=== PATIENT | female | born 1990 ===

== ENCOUNTER 2018-06-13 19:28 | Emergency (ER) | payer SELFPAY ==
[2018-06-13 19:40] VITALS: BMI 26.1
[2018-06-13 20:30] LABS: BASO % 0.4 % (0.0-2.0); EOS # 0.1 K/uL (0.0-0.7); HEMOGLOBIN 12.4 g/dL (12.0-16.0); LYMPH % 24.6 % (20.0-40.0); MEAN CELL VOLUME 88.8 fl (81.0-99.0); MEAN CORPUSCULAR HEMOGLOBIN 29.3 pg (27.0-31.0); MONO # 0.5 K/uL (0.0-0.8); MONO % 6.1 % (0.0-10.0); NEUT # 5.6 K/uL (1.8-7.0); NEUT % 67.9 % (50.0-75.0); NRBC % 0.1 % (0.0-0.0); RBC 4.23 Mil/uL (3.80-5.20); RED CELL DISTRIBUTION WIDTH 13.7 % (11.5-14.5); WHITE BLOOD COUNT 8.2 K/uL (4.8-10.8)
[2018-06-13 20:44] LABS: ALB/GLOB RATIO 1.1 (1.0-2.1); ALBUMIN 3.8 g/dL (3.5-5.0); ALT/SGPT 25 U/L (9-52); AST/SGOT 21 U/L (14-36); BLOOD UREA NITROGEN 2 mg/dl (7-17); CALCIUM 9.3 mg/dL (8.4-10.2); GFR NON-AFRICAN AMERICAN > 60
--- NOTE | 2018-06-13 21:30 | ED PDOC ---
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 States she has been having lower abdominal pain for 2 weeks and has had a rust colored discharge. No fevers, nausea, vomiting. No urinary symptoms. 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 Past Medical History Reviewed: Historical Data, Nursing Documentation, Vital Signs Vital Signs: Last Vital Signs Temp 98.1 F 06/13/18 19:40 Pulse 89 06/13/18 19:40 Resp 18 06/13/18 19:40 BP 113/69 06/13/18 19:40 Pulse Ox 97 06/13/18 19:40 - Medical History PMH: No Chronic Diseases - Family History Family History: States: Unknown Family Hx - Allergies Allergies/Adverse Reactions: Allergies Allergy/AdvReac Type Severity Reaction Status Date / Time Penicillins Allergy RASH Verified 06/13/18 19:40 Review of Systems ROS Statement: Except As Marked, All Systems Reviewed And Found Negative Gastrointestinal: Positive for: Abdominal Pain Genitourinary Female: Positive for: Vaginal Discharge Physical Exam - Reviewed Nursing Documentation Reviewed: Yes Vital Signs Reviewed: Yes - Physical Exam Appears: Positive for: Well, Non-toxic, No Acute Distress Head Exam: Positive for: ATRAUMATIC, NORMAL INSPECTION, NORMOCEPHALIC Skin: Positive for: Normal Color, Warm, DRY Eye Exam: Positive for: EOMI, Normal appearance, PERRL ENT: Positive for: Normal ENT Inspection Neck: Positive for: Normal, Painless ROM Cardiovascular/Chest: Positive for: Regular Rate, Rhythm Respiratory: Positive for: CNT, Normal Breath Sounds Gastrointestinal/Abdominal: Positive for: Normal Exam, Soft Pelvic Exam: Positive for: External Exam Normal, Discharge, Other (Blueprint Cutter: Breanne Kinney RN). Negative for: Tender W/Cervical Motion, Tender Adnexa, Tender Uterus Back: Positive for: Normal Inspection Extremity: Positive for: Normal ROM Neurologic/Psych: Positive for: Alert, Oriented - Laboratory Results Result Diagrams: 06/13/18 20:20 06/13/18 20:20 Lab Results: Total Bilirubin < 0.1 mg/dl (0.2-1.3) L 06/13/18 20:20 AST 21 U/L (14-36) 06/13/18 20:20 ALT 25 U/L (9-52) 06/13/18 20:20 Alkaline Phosphatase 101 U/L (38-126) 06/13/18 20:20 Total Protein 7.3 G/DL (6.3-8.2) 06/13/18 20:20 Albumin 3.8 g/dL (3.5-5.0) 06/13/18 20:20 Globulin 3.4 gm/dL (2.2-3.9) 06/13/18 20:20 Albumin/Globulin Ratio 1.1 (1.0-2.1) 06/13/18 20:20 Beta HCG, Quant 74618.00 mIU/mL 06/13/18 20:20 - ECG O2 Sat by Pulse Oximetry: 97 Pulse Ox Interpretation: Normal Medical Decision Making Medical Decision MakinPM @ 15 weeks presenting with pelvic pain and discharge --Well appearing, all vitals normal, exam shows some discharge, no tenderness, os closed --Will check U/S for apparent abnormality Time: 2308 US RESULTS Findings Uterus: Single Live intrauterine gestation. Presentation- Cephalic. Placenta- Left. Clear from os (> 2 cm from cervix). motion- Seen. Heart Rate- 139 beats per minute Amniotic fluid- Very little amniotic fluid visualized, 1.76 cm. The following measurements were obtained: BPD 3.35 cm- 16 weeks 3 days. HC 12.79 cm 16 weeks 3 days. AC 9.12 cm 15 weeks 2 days. FL 2.02 cm 16 weeks 0 days. Estimated ultrasound gestational age- 16 weeks, 0 days. Uterus- multiple pedunculated fibroids, largest measures 7.5 x 7.4 x 5.2 cm. Cervix 4.2 cm. Closed. No cervical abnormality seen. Right Ovary Not seen. Left Ovary Not seen. Free Fluid None. Other Findings None. Impression Single live intrauterine gestation - 16 weeks, 0 days. Heart Rate is 139 beats per minute. Very little amniotic fluid of 1.76 cm. Multiple pedunculated uterine fibroids, Electronically signed on Jun 13, 2018 11:08:08 PM EST by: Haja Swift M.D., MBA Certified By [facility] & [facility] Fellowship Trained MRI and CT Specialist Gave results to patient using certified wire lather EDT Omar Fatima Spoke with Dr. Wang who recommended no acute intervention Followup given for [facility] Well appearing upon discharge Disposition - Clinical Impression Clinical Impression: Abdominal pain during - Disposition [facility] Disposition: Routine/Home Disposition Time: 00:00 Condition: GOOD Instructions: Stomach Pain in Early Forms: [facility] (Portuguese) Print Language: KHMER
[2018-06-13 21:44] LABS: SQUAMOUS EPITHIAL 6 /hpf (0-5); URINE BACTERIA RARE (<OCC); URINE BILIRUBIN NEGATIVE (NEGATIVE); URINE BLOOD SMALL (NEGATIVE); URINE CLARITY SLIGHTY-CLOUDY (Clear); URINE COLOR STRAW (YELLOW); URINE GLUCOSE (UA) NEG (NEGATIVE); URINE LEUKOCYTE ESTERASE SMALL Leu/uL (Negative); URINE PROTEIN NEGATIVE (NEGATIVE); URINE UROBILINOGEN 0.2-1.0 mg/dL (0.2-1.0)
[2018-06-14 02:01] VITALS: BP 116/72; PULSE 76; RESP 19; TEMP 98.3; O2SAT 99
--- NOTE | 2018-06-14 10:03 | US ---
Date of service: 06/13/2018 PROCEDURE: OB Pelvic Ultrasound HISTORY: Abd pain 15 weeks LMP: 02/19/2018 COMPARISON: None available. FINDINGS: UTERUS: Placenta: Left Presentation: Cephalic BPD: 3.4 cm compatible with estimated gestational age of 16 weeks, 3 days HC 12.8 cm compatible with estimated gestational age of 16 weeks, 3 days HC: 9.1 cm compatible with estimated gestational age of 15 weeks, 2 days FL: 2.0 cm compatible with estimated gestational age of 16 weeks, 0 days Heart rate: 139 bpm. age (Ultrasound estimated): 16 weeks, 0 days Gertrude-gestational hemorrhage: None. Date of delivery (Ultrasound estimated) : 11/28/2018 Multiple pedunculated uterine fibroids, the largest measures 7.5 x 7.4 x 5.2 cm CERVIX: Measures 4.2 cm. Long and closed. No cervical abnormality seen. RIGHT OVARY: Not visualized LEFT OVARY: Not visualized FREE FLUID: None. OTHER FINDINGS: Low amniotic fluid 24.8 cm IMPRESSION: Single live intrauterine gestation with average ultrasound age of 16 weeks, 0 days. heart rate 139 beats per minute. Low amniotic fluid totaling 1.8 cm. Cervix long and closed. Multiple large pedunculated uterine fibroids.
== END 2018-06-14 00:30 | disposition home or self-care (01) ==
LOC: H.ER 19:28
DX: O26.892 Other specified pregnancy related conditions, second trimester (principal); Z3A.16 16 weeks gestation of pregnancy; O34.12 Maternal care for benign tumor of corpus uteri, second trimester; D25.9 Leiomyoma of uterus, unspecified; Z88.0 Allergy status to penicillin